=== PATIENT | female | born 1995 | race Caucasian/White ===

== ENCOUNTER 2017-05-25 20:01 | Emergency (ER) | payer OTHER ==
[~2017-05-25] VITALS: Ht 167.6 cm; Wt 65.0 kg
[2017-05-25 20:05] VITALS: TEMP 36.7; O2SAT 100; Ht 167.6 cm; Wt 65.0 kg
[2017-05-25] MEDS ORDERED: IBUPROFEN 600 MG TAB PO STA (20:44)
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
[2017-05-25] MEDS ORDERED: ACETAMINOPHEN 500 MG TAB PO ONE (21:11)
[2017-05-25] MEDS ORDERED: FLUO40CA8 PO (21:39)
[2017-05-25] MEDS ORDERED: OMEG10007 PO (21:39)
[2017-05-25] MEDS ORDERED: [UNRECOGNIZED DRUG - CODE] PO (21:39)
[2017-05-25 22:00] VITALS: BP 145/76; PULSE 88; O2SAT 98
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
== END 2017-05-25 22:00 | disposition home or self-care (01) ==
LOC: EDBD 20:01 → C.EDD 20:03
DX: M25.521 Pain in right elbow (principal); Z79.899 Other long term (current) drug therapy; V03.90XA Pedestrian on foot injured in collision with car, pick-up truck or van, unspecified whether traffic or nontraffic accident, initial encounter